=== PATIENT | female | born 1985 | race African-American/Black ===

== ENCOUNTER 2017-05-05 01:26 | Emergency (ER) | payer OTHER ==
--- NOTE | ~2017-05-05 | EKG ---
PATIENT: PAULINE STRATTON UNIT #: [id number] Ventricular Rate: 79 BPM Atrial Rate: 79 BPM P-R Interval: 150 ms QRS Duration: 84 ms Q-T Interval: 362 ms QTC Calculation(Bezet): 415 ms P Buckley: 63 degrees Calculated R Buckley: 30 degrees Calculated T Buckley: 25 degrees Diagnosis Line: Normal sinus rhythm Diagnosis Line: Possible Left atrial enlargement Diagnosis Line: Borderline ECG Diagnosis Line: No previous ECGs available Diagnosis Line: Confirmed by NOY KHAN MD ([id number]) on Diagnosis Line: 05/06/2017 6:38:23 AM INTERPRETING MDAlix CHAND
[2017-05-05] MEDS ORDERED: CITRANATAL B-C1 EAC1 PO (01:42)
[2017-05-05] MEDS ORDERED: NORMODYNE PO (01:43)
[2017-05-05] MEDS ORDERED: IRON 100 PLUS1 EAC1 PO (01:43)
== END 2017-05-05 05:17 | disposition left against medical advice (07) ==
LOC: CED 01:26
DX: Z53.21 Procedure and treatment not carried out due to patient leaving prior to being seen by health care provider (principal)
CPT/HCPCS: 93005

== ENCOUNTER 2017-06-08 02:21 | Emergency (ER) | payer OTHER ==
[~2017-06-08] VITALS: Ht 167.6 cm; Wt 97.5 kg
--- NOTE | ~2017-06-08 | EKG ---
PATIENT: PAULINE STRATTON UNIT #: [id number] Ventricular Rate: 73 BPM Atrial Rate: 73 BPM P-R Interval: 158 ms QRS Duration: 98 ms Q-T Interval: 376 ms QTC Calculation(Bezet): 414 ms P Stella: 43 degrees Calculated R Stella: 5 degrees Calculated T Stella: 10 degrees Diagnosis Line: Normal sinus rhythm Diagnosis Line: Moderate voltage criteria for LVH, may be normal Diagnosis Line: variant Diagnosis Line: Borderline ECG Diagnosis Line: No previous ECGs available Diagnosis Line: Confirmed by JEFFRY MONACO MD ([id number]) on Diagnosis Line: 06/08/2017 11:58:26 AM INTERPRETING MD: JACINDA MITCHELL
[~2017-06-08 02:21] MED LIST: CITRANATAL B-C1 EAC1 PO; IRON 100 PLUS1 EAC1 PO; NORMODYNE PO
[2017-06-08 04:36] LABS: BASOPHIL% 0.4 % (0-2.5); EOSINOPHIL# 0.1 X10e3 (0-0.7); HEMATOCRIT 34.7 % (35.0-45.0); HEMOGLOBIN 11.4 gm/dL (12.0-16.0); LYMPHOCYTE# 2.4 X10e3 (1.0-3.5); LYMPHOCYTE% 23.5 % (17.0-45.0); MEAN CELL VOLUME 70.5 FL (83-96); MEAN CORPUSCULAR HEMOGLOBIN 23.2 PG (28-34); MEAN CORPUSCULAR HGB CONC 32.9 g/dL (30-36); MEAN PLATELET VOLUME 7.4 FL (6.5-11.5); MONOCYTE# 0.7 X10e3 (0-1.0); MONOCYTE% 6.9 % (3.0-12.0); NEUTROPHIL# 6.9 X10e3 (1.5-7.1); NEUTROPHIL% 68.2 % (40-75); PLATELET COUNT 201 X10e3 (140-420); RED BLOOD COUNT 4.93 X10e (3.90-5.30); RED CELL DISTRIBUTION WIDTH 15.6 % (11.0-15.5); WHITE BLOOD COUNT 10.1 X10e3 (4.0-10.5)
[2017-06-08 04:37] LABS: DIFF IND NO
[2017-06-08 04:44] LABS: POC - CKMB <1.0 ng/mL (0.0-7.9); POC - TROPONIN <0.05 ng/mL (<=0.05)
[2017-06-08 04:58] LABS: ALBUMIN SERUM 3.4 g/dL (3.5-5.0); BILIRUBIN, DIRECT 0.1 mg/dL (0.0-0.2); BILIRUBIN,INDIRECT 0.4 mg/dL (0.0-0.9); BILIRUBIN,TOTAL 0.5 mg/dL (0.2-2.0); CREATININE SERUM 0.5 mg/dL (0.6-1.4); GLOM FILT RATE Estimated 150.5 mL/min (>60); POTASSIUM 3.4 mmol/L (3.5-5.1); PROTEIN TOTAL SERUM 6.4 g/dL (6.0-8.3)
== END 2017-06-08 05:44 | disposition home or self-care (01) ==
LOC: CED 02:21
PROVIDERS: Emergency Medicine
DX: O99.89 Other specified diseases and conditions complicating pregnancy, childbirth and the puerperium (principal); R07.89 Other chest pain; I10 Essential (primary) hypertension; O99.332 Smoking (tobacco) complicating pregnancy, second trimester; F17.210 Nicotine dependence, cigarettes, uncomplicated; Z3A.01 Less than 8 weeks gestation of pregnancy; Z88.0 Allergy status to penicillin
CPT/HCPCS: 36415; 80048; 80076; 82553; 84484; 85025; 93005; 99285